=== PATIENT | male | born 1990 | race Caucasian/White ===

== ENCOUNTER 2019-06-07 06:51 | Day surgery (SDC) | payer BC ==
[~2019-06-07 06:51] MED LIST: Ketamine 500 mg/10 ML MDV ONE; Lactated Ringers 1,000 ML IV SCH; Lidocaine 1%/Sod Bicarbonate in NS 8.4% 1 ML Syringe IDERM PRN; Midazolam 1 MG/ML 2 ML SDV ONE; Ondansetron 4 MG/2 ML SDV ONE; Propofol 200 MG/20 ML SDV ONE; Sodium Chloride 0.9% 10 ML Syringe FLUSH PRN; ceFAZolin 1 GM Vial ONE; fentaNYL 250 MCG/5 ML SDV ONE
[2019-06-07] MEDS ORDERED: Dexamethasone 4 MG/ML 5 ML MDV ONE (06:53)
[2019-06-07] MEDS ORDERED: Ketorolac 30 MG/ML SDV ONE (06:53)
[2019-06-07] MEDS ORDERED: EPINEPHrine 1 MG/ML 30 ML MDV SCH (07:15)
--- NOTE | 2019-06-07 07:22 | PCM.PREANE ---
Preanesthetic Assessment - Anesthesia/Transfusion/Family Hx Anesthesia History: No Prior Anesthesia Family History of Anesthesia Reaction: No Transfusion History: No Prior Transfusion(s) - Review of Systems General: Other (positive for marijuana use of every other day, last used cocaine in 2018, drinks socially ) Pulmonary: Other (current smoker) Cardiovascular: No Symptoms Gastrointestinal: No Symptoms, Other (hearburn, controlled on meds. states under control) Neurological: No Symptoms Other: Reports: None - Physical Assessment NPO Status Date: 06/06/19 NPO Status Time: 21:00 ASA Class: 2 Mental Status: Alert & Oriented x3 Airway Class: Mallampati = 1 Dentition: Reports: Normal Dentition Thyro-Mental Finger Breadths: 3 Mouth Opening Finger Breadths: 3 ROM/Head Extension: Full Lungs: Clear to Auscultation, Normal Respiratory Effort Cardiovascular: Regular Rate, Regular Rhythm - Lab Values: Laboratory Last Values MRSA (PCR) Negative 06/01/19 11:33 - Allergies Allergies/Adverse Reactions: Allergies Allergy/AdvReac Type Severity Reaction Status Date / Time No Known Allergies Allergy Verified 06/06/19 12:36 - Blood Blood Available: No Product(s) Available: None - Anesthesia Plan Pre-Op Medication Ordered: None - Acknowledgements Anesthesia Type Planned: General Anesthesia Pt an Appropriate Candidate for the Planned Anesthesia: Yes Alternatives and Risks of Anesthesia Discussed w Pt/Guardian: Yes Pt/Guardian Understands and Agrees with Anesthesia Plan: Yes PreAnesthesia Questionnaire - Past Health History Medical/Surgical History: Denies Medical/Surgical History Gastrointestinal History: Reports: GERD - SUBSTANCE USE Smoking Status *Q: Current Every Day Smoker Recreational Drug Use History: No - HOME MEDS Home Medications: Home Meds Ibuprofen 800 mg PO Q8H PRN 06/06/19 [History] Ketorolac [Toradol] 10 mg PO Q8H PRN 06/06/19 [History] Acetaminophen/HYDROcodone [[place] 325-5 MG] 1 - 2 tab PO Q6H PRN #40 tablet 06/07 [Rx] Cyclobenzaprine HCl 10 mg PO TID PRN #30 tablet 06/07/19 [Rx] Enoxaparin Sodium [Lovenox] 40 mg SQ DAILY #14 ml 06/07/19 [Rx] - CURRENT (IN HOUSE) MEDS Current Meds: Current Medications Epinephrine HCl (Adrenalin) 3 mg .XX ONETIME NAMRATA Stop: 06/07/19 12:00 Lactated Ringer's (Ringers, Lactated) 1,000 mls @ 125 mls/hr IV ASDIRECTED NAMRATA Stop: 06/07/19 23:00 Lidocaine/Sodium Bicarbonate (Buffered Lidocaine 1% In Ns 8.4%) 0.25 ml IDERM ONETIME PRN PRN Reason: Prior to IV Start Stop: 06/07/19 18:00 Sodium Chloride (Saline Flush) 10 ml FLUSH ASDIRECTED PRN PRN Reason: Keep Vein Open Stop: 06/07/19 18:00 Discontinued Medications Cefazolin Sodium (Ancef) Confirm Administered Dose 1 gm .ROUTE .STK-MED ONE Stop: 06/07/19 06:52 Cefazolin Sodium (Ancef) Confirm Administered Dose 1 gm .ROUTE .STK-MED ONE Stop: 06/07/19 06:52 Dexamethasone (Dexamethasone) Confirm Administered Dose 20 mg .ROUTE .STK-MED ONE Stop: 06/07/19 06:54 Fentanyl (Sublimaze) Confirm Administered Dose 250 mcg .ROUTE .STK-MED ONE Stop: 06/07/19 06:52 Ketamine HCl (Ketalar) Confirm Administered Dose 500 mg .ROUTE .STK-MED ONE Stop: 06/07/19 06:52 Ketorolac Tromethamine (Toradol) Confirm Administered Dose 30 mg .ROUTE .STK- MED ONE Stop: 06/07/19 06:54 Midazolam HCl (Versed 1 Mg/Ml) Confirm Administered Dose 2 mg .ROUTE .STK-MED ONE Stop: 06/07/19 06:51 Ondansetron HCl (Zofran) Confirm Administered Dose 4 mg .ROUTE .STK-MED ONE Stop: 06/07/19 06:51 Propofol (Diprivan 20 Ml) Confirm Administered Dose 200 mg .ROUTE .STK-MED ONE Stop: 06/07/19 06:51
[2019-06-07] MEDS ORDERED: Albuterol 0.083% 2.5 MG/3 ML Neb Soln NEB ONE (07:28)
[2019-06-07] MEDS ORDERED: EPINEPHrine 1 MG/1 ML Amp ONE (07:34)
[2019-06-07] MEDS ORDERED: Ropivacaine 0.5% 5 MG/ML 30 ML SDV ONE (07:34)
[2019-06-07] MEDS ORDERED: Bupivacaine 0.25% 10 ML SDV ONE (07:37)
[2019-06-07] MEDS ORDERED: Propofol 200 MG/20 ML SDV ONE (08:02)
[2019-06-07] MEDS ORDERED: HYDROmorphone 0.5 MG/0.5 ML Syringe ONE ×2 (08:18→08:33)
[2019-06-07] MEDS ORDERED: Lactated Ringers 1,000 ML ONE (08:33)
[2019-06-07] MEDS ORDERED: Labetalol 100 MG/20 ML MDV ONE (09:02)
[2019-06-07] MEDS ORDERED: Lidocaine 1% 4 ML ONE (09:30)
--- NOTE | 2019-06-07 10:34 | PCM.POSTAN ---
POST ANESTHESIA ASSESSMENT - MENTAL STATUS Mental Status: Alert, Oriented - VITAL SIGNS Vital Signs: Last Vital Signs Temp 36.9 C 06/07/19 07:00 Pulse 77 06/07/19 07:00 Resp 16 06/07/19 07:00 BP 135/86 06/07/19 07:00 Pulse Ox 98 06/07/19 07:28 - RESPIRATORY Respiratory Status: Respiratory Rate WNL, Airway Patent, O2 Saturation Stable, Supplemental Oxygen - CARDIOVASCULAR CV Status: Pulse Rate WNL, Blood Pressure Stable - GASTROINTESTINAL GI Status: No Symptoms - PAIN Pain Score: 0 - POST OP HYDRATION Hydration Status: Adequate & Stable
--- NOTE | 2019-06-07 10:49 | CR ---
Left knee: Two fluoroscopic spot views were obtained utilizing C-arm device. Comparison: Previous left knee radiographic study of 05/20/19. Study shows evidence of recent ACL repair. Fluoroscopy time is given as 2.0 seconds. Impression: 1. Procedural exam as noted above. Diagnostic code #2
--- NOTE | 2019-06-07 11:13 | PCM.SN ---
- Free Text/Narrative Note: Left selective femoral nerve block at the adductor canal for post-procedure pain control under US guidance requested by Dr. cMdaniel. Time Out: 1045 Start: 1045 End: 1100 Chart reviewed. Consent signed. Questions answered. Appropriate monitors applied. Time out performed. Left mid-shaft femur identified with ultrasound, scanning medially of femur, the femoral artery in the adductor canal visualized , and the femoral nerve located laterally to the artery. The skin was prepped lateral to the ultrasound probe with chlorahexadine times two. The 21ga 4 insulated block needle was inserted under direct ultrasound guidance into the adductor canal. 25mL of 0.5% ropivacaine with 1:200,000 epinephrine was injected circumferentially around the nerve with intermittent negative aspiration noted. Patient tolerated the procedure well. Sterile technique noted along with sterile gloves, mask, and sterile probe cover. See picture on progress note and vital signs on nurses notes. Block completed in PACU. Chalino Laird CRNA
[2019-06-07] MEDS: fentaNYL 100 MCG/2 ML SDV IVPUSH PRN ×2 (11:14→11:21)
[2019-06-07] MEDS ORDERED: HYDROmorphone 0.5 MG/0.5 ML Syringe IVPUSH PRN (11:33)
[2019-06-07] MEDS ORDERED: Acetaminophen/HYDROcodone 325-5 MG Tab PO PRN (12:11)
--- NOTE | 2019-06-07 12:32 | PCM48HPAN ---
Post Anesthesia Note - EVALUATION WITHIN 48HRS OF ANESTHETIC Vital Signs in Normal Range: Yes Patient Participated in Evaluation: Yes Respiratory Function Stable: Yes Airway Patent: Yes Cardiovascular Function Stable: Yes Hydration Status Stable: Yes Pain Control Satisfactory: Yes Nausea and Vomiting Control Satisfactory: Yes Mental Status Recovered: Yes Vital Signs: Last Vital Signs Temp 36.9 C 06/07/19 07:00 Pulse 77 06/07/19 07:00 Resp 16 06/07/19 07:00 BP 135/86 06/07/19 07:00 Pulse Ox 98 06/07/19 07:28
--- NOTE | 2019-06-12 16:36 | PCM.OPNOTE ---
- General Post-Op/Procedure Note Date of Surgery/Procedure: 06/07/19 Operative Procedure(s): left knee acl reconstruction with quad tendon autograft Pre Op Diagnosis: left knee acl rupture Post-Op Diagnosis: Same Anesthesia Technique: General LMA, Regional Block Primary Surgeon: Gerard Mcdaniel Anesthesia Provider: Rosalina Ni Lubrication Servicer: Angeles Perez Lubrication Servicer: Ariella Valentine EBOmar in mLs: 10 Complications: None Condition: Good
--- NOTE | 2019-06-12 17:19 | OR ---
DATE OF OPERATION: 06/07/2019 SURGEON: Gerard Mcdaniel MD OPERATION PERFORMED: Left knee anterior cruciate ligament reconstruction with quad tendon autograft with knee video arthroscopy. PREOPERATIVE DIAGNOSIS: Left knee anterior cruciate ligament rupture. POSTOPERATIVE DIAGNOSIS: Left knee anterior cruciate ligament rupture. ANESTHESIA: General LMA with regional femoral block. ANESTHESIA PROVIDER: Rosalina Ni. ASSISTANTS: Angeles Perez PA-C; and Ariella Valentine LPN. ESTIMATED BLOOD LOSS: 10 mL. COMPLICATIONS: None. CONDITION: Stable. DESCRIPTION OF PROCEDURE: The patient was identified in the preoperative holding area. Proper site was marked and identified by the surgeon. The patient was taken back to the operative theater, where after adequate anesthesia, the patient's right lower extremity was placed in a well-leg caballero and left lower extremity had a nonsterile tourniquet applied. It was then placed in a C-clamp caballero. Left lower extremity was then sterilely prepped and draped in the usual sterile fashion. OR-wide time-out was performed. The patient received 2 g IV Ancef. Foot of the bed was then lowered. The left lower extremity was then exsanguinated. Tourniquet was insufflated to 250 mmHg. Standard anterolateral portal was created and scope trocar was introduced to the knee joint. The patient was noted to have a large effusion. There was no chondromalacia of the patellofemoral joint. Attention was turned to the medial compartment. With the use of a spinal needle, anteromedial portal was created. The medial compartment showed no medial meniscus tear and no signs of chondromalacia. The ACL was completely ruptured off the femoral side in the notch and scarred in. Lateral compartment showed no signs of chondromalacia or lateral meniscus tear. At this time, the scope was removed. An incision was made up near the superior pole of the patella. This was taken down to the quadriceps tendon. At this time, the parallel knife blade was used back to a level 70 mm for a 9 mm ACL quad tendon autograft. The 15 blade was then used to free up the first 25 mm. A whipstitch using a FiberLoop was then done in the end of this, and Arthrex quad tendon autograft set was then used back to a level of 68 mm for a very nice clean graft. This was then taken back to the back table and prepared for both the femoral and tibial side with an Endobutton on the femoral side and free suture limbs on the tibial side by Angeles Perez PA-C, and Ariella Valentine LPN. At this time, while this was being completed, the notch was resected at the old ACL fibers. The guidepin was then placed for the tibial tunnel after incision was made, and the guidepin was placed in a center-center position on previous ACL. A 9 mm reamer was then used over the top of the guidepin. Attention was turned to the femoral side. A flip cutter at 105 degrees was then placed at the posterior portion with just 2 to 3 mm rim off the posterior femoral condyle, the lateral condyle, and the notch. The flip cutter for 9 mm was then placed and it was brought back to a tunnel of 25 mm. Once it was cleared of all debris, graft was shuttled up through the tibial tunnel into the femoral tunnel and the Endobutton was flipped on the lateral side of the femur and was found to be flipped on C-arm fluoroscopy in the proper position. The graft was then tunneled up through the tibia and into the femoral tunnel, and tension was applied. The patient's knee was brought through a cycle of range of motion. The patient had complete extension and full flexion with no impingement in the notch. A 4, 5 [place] fully-threaded screw was then placed in the tibia with a washer as a post. The suture limbs were then tied over the tibial post, and the screw was tightened. The patient had a negative Catalina's and anterior drawer under direct visualization. Adequate saline was irrigated through the wounds. Monocryl was used for closure of all incision sites and 2-0 Vicryl was used deep. The patient was placed in a sterile soft dressing and a hinged knee brace, and sent to the PACU in a stable condition. DEENA /[id number] TADEO
== END 2019-06-07 13:30 | disposition home or self-care (01) ==
LOC: JD.SDS 06:51
PROVIDERS: ATTEND Orthopaedic Surgery
DX: S83.512A Sprain of anterior cruciate ligament of left knee, initial encounter (principal); M25.462 Effusion, left knee; K21.9 Gastro-esophageal reflux disease without esophagitis; F17.210 Nicotine dependence, cigarettes, uncomplicated; G89.18 Other acute postprocedural pain; V19.88XA Pedal cyclist (driver) (passenger) injured in other specified transport accidents, initial encounter; Z79.899 Other long term (current) drug therapy
CPT/HCPCS: 29888; 64447; 76000; 87641; 94640; A9270; C1713; J0171; J0690; J1100; J1170; J1885; J2001; J2250; J2405; J2704; J2795; J3010; J3490; J7120; 01400; 64450